=== PATIENT | male | born 1985 | race Caucasian/White ===

== ENCOUNTER 2016-05-27 08:27 | Emergency (ER) | payer BC ==
[~2016-05-27] VITALS: Ht 177.8 cm; Wt 99.3 kg
[~2016-05-27 08:27] MED LIST: FLONASE16 G1 BOTH NARES; LEXAPRO10 MG PO; ZANTAC150 MG PO
[2016-05-27 08:37] VITALS: BP 126/92
[2016-05-27] MEDS ORDERED: NASONEX17 GM BOTH NARES (20:34)
[2016-05-27] MEDS ORDERED: AUGMENTIN875 MG PO (21:31)
== END 2016-05-27 09:12 | disposition home or self-care (01) ==
LOC: EME 08:27
DX: R04.0 Epistaxis (principal); F17.200 Nicotine dependence, unspecified, uncomplicated
CPT/HCPCS: 99281; 99284

== ENCOUNTER 2016-05-27 20:03 | Emergency (ER) | payer BC ==
[~2016-05-27] VITALS: Ht 177.8 cm; Wt 99.5 kg
[2016-05-27] MEDS ORDERED: NASONEX17 GM BOTH NARES (20:34)
[2016-05-27] MEDS ORDERED: AUGMENTIN875 MG PO (21:31)
[2016-05-27 22:18] LABS: EOSINOPHIL (%) 0.3 % (0-5); HEMATOCRIT 44.1 % (38.0-50.0); IMMATURE GRANULOCYTE (%) 0.5 % (0.0-0.7); IMMATURE GRANULOCYTE COUNT 0.1 K/uL; INSTRUMENT ABS NEUTROPHIL CT 11.1 K/uL; LYMPHOCYTE COUNT 2.4 K/uL (1.0-2.8); MCH 28.7 PG (29.0-34.0); MCHC 33.3 G/DL (30.0-36.0); MEAN PLAT.VOLUME 9.9 uM^3 (9.0-12.4); MONOCYTE (%) 6.7 % (3-12); NEUTROPHIL COUNT 11.1 K/uL (1.8-6.4); PLATELET COUNT 348 K/uL (156-360); RBC DIS.WIDTH-CV 11.9 % (11.8-14.6); RBC DIS.WIDTH-SD 37.5 % (39-53); RED BLOOD COUNT 5.13 M/uL (4.00-5.50); WHITE BLOOD COUNT 14.6 K/uL (4.1-10.2)
[2016-05-27 22:26] LABS: CHLORIDE 106 mEq/L (99-109); POTASSIUM 4.2 mEq/L (3.7-5.4); SODIUM 140 mEq/L (136-147)
[2016-05-27 22:27] LABS: GLUCOSE 113 mg/dL (70-99)
[2016-05-27 22:29] LABS: ANION GAP 10 MEQ/L (2-14)
[2016-05-27 22:31] LABS: GFR ESTIMATE (CALCULATED) > 59 mL/min/; PROTHROMBIN TIME 10.3 (9.2-11.2); PTT 25.7 (25-32)
[2016-05-27 22:32] LABS: UREA NITROGEN (BUN) 18 mg/dL (9-23)
[2016-05-27 23:03] VITALS: BP 126/79
== END 2016-05-27 23:10 | disposition home or self-care (01) ==
LOC: EME 20:03
PROVIDERS: Emergency Medicine
PROC: 2Y41X5Z Packing of Nasal Region using Packing Material (ICD-10-PCS; principal; 2016-05-27)
DX: R04.0 Epistaxis (principal); F17.200 Nicotine dependence, unspecified, uncomplicated; Z98.890 Other specified postprocedural states
CPT/HCPCS: 80048; 85025; 85610; 85730; 99281; 99284

== ENCOUNTER 2016-05-27 23:15 | Observation (INO) | payer BC ==
[~2016-05-27] VITALS: Ht 177.8 cm; Wt 100.6 kg
[~2016-05-27 23:15] MED LIST changes: +AUGMENTIN875 MG PO; +NASONEX17 GM BOTH NARES
[2016-05-28] VITALS (7 sets, daily range): BP systolic 104–149; BP diastolic 62–87
[2016-05-28 08:54] LABS: HEMATOCRIT 38.8 % (38.0-50.0); MCV 86.4 FL (86-99)
[2016-05-29 03:41] VITALS: BP 110/56
[2016-05-29 06:55] VITALS: BP 126/65
== END 2016-05-29 10:34 | disposition home or self-care (01) ==
LOC: EME 23:15 → EDOF 05-28 02:49 → 2EAST 05-28 02:49 → 5WEST 05-28 02:49 → EDOF 05-28 02:49 → 5WEST 05-28 05:29 → 2EAST 05-28 14:49
PROVIDERS: Family Medicine
PROC: 0W3Q8ZZ Control Bleeding in Respiratory Tract, Via Natural or Artificial Opening Endoscopic (ICD-10-PCS; principal; 2016-05-28)
PROC: 2Y41X5Z Packing of Nasal Region using Packing Material (ICD-10-PCS; 2016-05-28)
DX: J95.860 Postprocedural hematoma of a respiratory system organ or structure following a respiratory system procedure (principal); R04.0 Epistaxis; Z85.820 Personal history of malignant melanoma of skin; I10 Essential (primary) hypertension
CPT/HCPCS: 85014; 85018; 99281; 99285; G0378; J1100; J2250; J3010

== ENCOUNTER 2017-03-04 03:26 | Emergency (ER) | payer BC ==
[~2017-03-04] VITALS: Ht 177.8 cm; Wt 96.3 kg
[2017-03-04 04:04] LABS: HEMOGLOBIN 16.1 G/DL (12.5-16.6); MCHC 34.3 G/DL (30.0-36.0); MCV 84.5 FL (86-99); PLATELET COUNT 327 K/uL (156-360); RBC DIS.WIDTH-CV 12.1 % (11.8-14.6); RBC DIS.WIDTH-SD 36.8 % (39-53); RED BLOOD COUNT 5.56 M/uL (4.00-5.50); WHITE BLOOD COUNT 17.5 K/uL (4.1-10.2)
[2017-03-04 04:19] LABS: ALBUMIN 5.2 g/dL (3.2-4.8); CHLORIDE 103 mEq/L (99-109); POTASSIUM 4.7 mEq/L (3.7-5.4); SODIUM 136 mEq/L (136-147)
[2017-03-04 04:21] LABS: GLUCOSE 171 mg/dL (70-99); TOTAL PROTEIN 9.5 g/dL (6.4-8.3)
[2017-03-04 04:23] LABS: TOTAL BILIRUBIN 0.9 mg/dL (0.0-1.0)
[2017-03-04 04:25] LABS: ALKALINE PHOSPHATASE 108 IU/L (3-129); CREATININE 1.6 mg/dL (0.6-1.3); GFR ESTIMATE (CALCULATED) 54 mL/min/ (58.99-99999)
[2017-03-04 04:26] LABS: UREA NITROGEN (BUN) 22 mg/dL (9-23)
[2017-03-04 04:27] LABS: AST (GOT) 32 IU/L (2-34)
[2017-03-04 04:28] LABS: ALT (GPT) 58 IU/L (3-49)
[2017-03-04 04:35] LABS: APPEARANCE TURBID ((CLEAR)); BILIRUBIN NEGATIVE; BLOOD NEGATIVE; COLOR YELLOW ((YELLOW)); GLUCOSE (STRIP) NEGATIVE; KETONES 5; LEUKOCYTES NEGATIVE; NITRITE NEGATIVE; PROTEIN (STRIP) 100; SPECIFIC GRAVITY 1.032 (1.000-1.030)
[2017-03-04 04:57] LABS: RED BLOOD CELLS NONE SEEN /HPF (0-5); WHITE BLOOD CELLS 0-5 /HPF (0-5)
[2017-03-04 04:58] LABS: BACTERIA 2+ /HPF; EPITHELIAL CELLS RARE /HPF; MUCUS 1+ /LPF; UCUL ADDED? YES
[2017-03-04 04:59] LABS: AMORPHOUS URATES CRYSTALS 3+
[2017-03-04] MEDS ORDERED: IMODIUM MS REL1 EACH PO (08:02)
[2017-03-04] MEDS ORDERED: ZOFRAN4 MG PO (08:02)
[2017-03-04 10:09] VITALS: BP 126/86
== END 2017-03-04 10:09 | disposition home or self-care (01) ==
LOC: EME 03:26
DX: R10.32 Left lower quadrant pain (principal); R11.2 Nausea with vomiting, unspecified; R19.7 Diarrhea, unspecified; D72.829 Elevated white blood cell count, unspecified; F17.200 Nicotine dependence, unspecified, uncomplicated; J45.909 Unspecified asthma, uncomplicated; F32.9 Major depressive disorder, single episode, unspecified; K21.9 Gastro-esophageal reflux disease without esophagitis; Z85.820 Personal history of malignant melanoma of skin
CPT/HCPCS: 74176; 80053; 81003; 85027; 87086; 87493; 99281; 99284; J2270; J2405; J7030